=== PATIENT | female | born 1985 | race Caucasian/White ===

== ENCOUNTER 2019-01-11 18:16 | Emergency (ER) | payer SELFPAY ==
[~2019-01-11] VITALS: Ht 162.6 cm; Wt 77.3 kg
[~2019-01-11 18:16] MED LIST: NAPR-985 PO
[2019-01-11 18:29] VITALS: BP 124/88; PULSE 67; RESP 22; Ht 162.6 cm; Wt 77.3 kg
== END 2019-01-11 19:59 | disposition home or self-care (01) ==
LOC: FTE 18:16
DX: S90.01XA Contusion of right ankle, initial encounter (principal); S90.512A Abrasion, left ankle, initial encounter; W10.0XXA Fall (on)(from) escalator, initial encounter; Y92.9 Unspecified place or not applicable
CPT/HCPCS: 73590